=== PATIENT | female | born 1990 | race Caucasian/White ===

== ENCOUNTER → 2022-08-06 10:30 | Outpatient (CLI) | payer OTHER, SELFPAY ==
--- NOTE | ~2022-08-06 | US_ITS ---
EXAMINATION: US thyroid DATE: 08/06/2022 11:33 INDICATION: Enlarged thyroid. Disorder of thyroid, unspecified. TECHNIQUE: Multiple ultrasound images of the thyroid were obtained. COMPARISON: None. FINDINGS: The right thyroid lobe measures 5.0 x 1.8 x 1.6 cm. The left thyroid lobe measures 5.8 x 1.7 x 2.0 c m. The thyroid is diffusely hypoechoic with heterogeneous echogenicity. No discrete nodule. Vascular ity is normal. IMPRESSION: 1. Heterogeneous thyroid, likely chronic lymphocytic (Eric) thyroiditis. Reviewed, dictated and finalized at location A.
== END ==
PROVIDERS: PCP Obstetrics & Gynecology Gynecology; Visit Provider Nurse Practitioner
DX: E07.9 Disorder of thyroid, unspecified (principal)
CPT/HCPCS: 76536

== ENCOUNTER → 2023-04-07 11:13 | Outpatient (CLI) | payer OTHER, SELFPAY ==
--- NOTE | ~2023-04-07 | US_ITS ---
EXAMINATION: US pelvic complete DATE: 04/07/2023 11:40 INDICATION: Uterine enlargement TECHNIQUE: Multiple transabdominal and endovaginal sonographic images of the pelvis were obtained. COMPARISON: None. FINDINGS: The uterus measures 6.8 x 4.3 x 5.5 cm. The endometrial complex measures 11 mm. The right o vary measures 3.6 x 2.6 x 3.6 cm. The left ovary measures 12.0 x 9.2 x 13 cm. There is a 12.4 x 8.1 x 11.3 cm simple cyst of the left adnexa. There is normal vascular flow in the ovaries. There is no fr ee fluid in the pelvis. IMPRESSION: 1. 12.4 cm simple cyst of the left adnexa. Follow-up ultrasound in six months is recommended. Reviewed, dictated and finalized at location L. IMPRESSION: 1. 12.4 cm simple cyst of the left adnexa. Follow-up ultrasound in six months i s recommended.
== END ==
PROVIDERS: PCP Nurse Practitioner; Visit Provider Nurse Practitioner
DX: N85.2 Hypertrophy of uterus (principal)
CPT/HCPCS: 76856

== ENCOUNTER 2023-06-01 02:58 | Day surgery (SDC) | payer OTHER, SELFPAY ==
[2023-05-25 16:17] VITALS: BMI 26.6
--- NOTE | 2023-05-25 16:24 | SUR.PREOP ---
Report to the Outpatient Waiting Room, entrance under the green pavilion located off [facility], at time 0830 on date 06/01/23. Planned Procedure Time: 1030. Time changes happen often and if your time is changed the preop area will call you the afternoon before. - You and your visitor will be asked to self-screen and do not enter if you have any COVID symptoms. - A mask is optional within the hospital at this time. Patients may have clear liquids (water, carbonated beverages, clear teas, apple juice) until 3 hours prior to surgery with a maximum of 20 ounces. - No food from midnight until time of surgery before 0730 - Infants may have breast milk until 4 hours before surgery, infant formula 6 hours prior to surgery. - Children will be allowed to drink immediately following surgery. If applicable, please bring a bottle or sippy cup to assist with drinking. Juice, water, soda, and popsicles are readily available. For infants on formula, please bring formula the day of surgery. Pacifiers are allowed. Take the following medications with a SIP of water the morning of surgery: ____levothyroxine DO NOT STOP ANY OF YOUR OTHER PRESCRIPTION MEDICATIONS PRIOR TO SURGERY ?EXCEPT THE FOLLOWING Medications to discontinue per physician Date to take last dose Please no make-up, nail american, hairspray, perfume, deodorant, or body powder the day of surgery. No jewelry (including any body piercings) or valuables the day of surgery, leave them at home. Please take a shower or bath the night before, or the morning of, surgery with an antibacterial soap. Wear comfortable, loose fitting clothing. Children are encouraged to wear pajamas. - Jewelry must be removed prior to entering the operating room. Rings and piercings that are not removed may be cut off. - The hospital will not accept responsibility for valuables. - Please leave all valuables, including medications, at home the day of surgery. If you are going home after surgery, a licensed compressed air pile driver operator must drive you home. - NO public transportation without another adult if you receive anesthesia. - We recommend that an adult stay with you for 24 hours following discharge. - We also recommend that you do not drive, make important decision, drink alcoholic beverages, or take any drugs that were not prescribed by your health care provider for at least 24 hours after your discharge time. For Pediatric surgeries, we recommend two adults accompany the child home. Follow any additional instructions given to you from your surgeon. If you or anyone in your household have experienced Covid symptoms in the past week, please notify your surgeon or the nurse liaison at the phone number below for possible testing. Telephone instructions given to __patient___and asked if any additional questions and then verbalized understanding. Patient advised to call surgeon office or pre surgery nurse liaison [phone] if any additional questions.
[2023-06-01] VITALS (11 sets, daily range): BP systolic 114–149; BP diastolic 50–78; PULSE 55–75; RESP 14–20; TEMP 36.3–36.8; O2SAT 98–100; BMI 27.1
[2023-06-01] MEDS: LACTATED RINGERS 1,000 ML 30 ML IV CONT ×2 (06:25→08:57)
[2023-06-01] MEDS: ACETAMINOPHEN 500 MG TABLET 1000 MG PO (06:41)
[2023-06-01] MEDS: KETOROLAC 15 MG/ML VIAL (*BKC) IV PUSH (06:41)
--- NOTE | 2023-06-01 06:52 | WPDANESEPPF ---
Anes - Initial Pre Proc Eval Procedure: Operation Date: 06/01/23 07:30 Proposed Procedures p Laparoscopic Management of Left Ovarian Cyst - Esme Irvin MD Date/Time: 06/01/23 06:52 Surgeon: Esme Irvin MD Pre Op Diagnosis: left ovarin cyst Patient Data Age: 32 Gender: F Height: 1.68 m Weight: 76.35 kg Allergies Allergy/AdvReac Type Severity Reaction Status Date / Time amoxicillin Allergy Hives Verified 06/01/23 06:20 Penicillins Allergy Hives Verified 06/01/23 06:20 Home Medications Medication Instructions Recorded Confirmed Type levothyroxine 112 mcg tablet 112 mcg PO DAILY 05/25/23 06/01/23 History Patient hx anesthesia problems: none Family hx anesthesia problems: none Results Review: All pre-operative results and documents have been reviewed as part of the pre-operative evaluation. [facility] Social History Social History Smoking status: Never smoker Alcohol intake: current Drinks per week: 2 Living arrangements: with family Anes - Eval Final PreProcedure Day of Procedure 06/01/23 06:52 Patient weight: overweight Heart: regular rate and rhythm Lungs: clear to auscultation Airway: Mallampati scale class III Neurological: alert and oriented Last oral intake: >/= 8 hours ASA classification: II Emergent: no Anesthetic plan: proceed Anesthesia type and monitoring: general ETT and standard monitoring Results Review: All pre-operative results and documents have been reviewed as part of the pre-operative evaluation. Informed Consent: The patient's anesthetic plan and its attendant risks and benefits were discussed with the patient/family/POA. Questions were solicited and answers provided to the satisfaction of the patient/family/POA.
--- NOTE | 2023-06-01 07:21 | P.HP_ITS ---
History of Present Illness History of Present Illness Consent: Risks, benefits, and alternatives have been discussed and questions answered. Patient agrees to proceed with procedure. Chief complaint: left ovarin cyst Narrative: Lilliam Gomez is a 32 year old female who was seen for her well-woman exam and found to have a large pelvic mass. Patient underwent pelvic ultrasound which revealed a [id number] a simple left ovarian cyst. Tumor markers including CA - 125, CA 19 - 9, and CEA are in the normal range. Due to the size of the cyst it was recommended to undergo laparoscopy for management. Risks of infection, bleeding, perforation or injury to internal organs, and possibility of needing to remove the left tube and ovary are reviewed. The patient voices understanding and agrees to proceed. 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 Surgical History Surgical History (Updated 06/01/23 @ 07:25 by Esme Irvin MD) History of tonsillectomy Social History Social History Smoking status: Never smoker Alcohol intake: current Drinks per week: 2 Living arrangements: with family Meds Home Medications and Allergies Home Medications Medication Instructions Recorded Confirmed Type levothyroxine 112 mcg tablet 112 mcg PO DAILY 05/25/23 06/01/23 History Allergies Allergy/AdvReac Type Severity Reaction Status Date / Time amoxicillin Allergy Hives Verified 06/01/23 06:20 Penicillins Allergy Hives Verified 06/01/23 06:20 Vital Signs Vital Signs - 24 hr 06/01/23 06:05 Temperature 98.3 F Pulse Rate 75 Respiratory Rate 16 Blood Pressure 124/68 Pulse Oximetry 100 Oxygen Delivery Room Air Exam Const: General: healthy appearing and alert Orientation/consciousness: patient oriented x3 Resp: Effort & Inspection: normal respiratory effort GI: GI Palp: Yes Soft to palpation, No Tenderness to palpation present (GI) an d Yes Other GI palpation findings present ( firmness to the lower half of the abdomen) : External Female Exam: normal external appearance Speculum Exam - Vagina: normal appearance of the vagina and normal vaginal discharge Speculum Exam - Cervix: normal appearance of the cervix Bimanual exam- vagina & uterus: other ( pelvic mass approximately 16 week size) Bimanual Exam- Adnexa, other: No adnexal tenderness Neuro: General: patient oriented x3 Assessment and Plan Assessment and plan (1) Left ovarian cyst: Code(s): N83.202 - Unspecified ovarian cyst, left side Status: Acute Assessment and Plan: plan to proceed with laparoscopic management of left ovarian cyst
--- NOTE | 2023-06-01 07:21 | WPDHPUPDATE1 ---
History and Physical Update Update Date/Time: 06/01/23 07:21 History and Physical has been reviewed, including an updated exam of the patient. There are NO changes in the patient's condition. Risks, benefits, and alternatives have been discussed and questions answered. Patient agrees to proceed with procedure.
--- NOTE | 2023-06-01 08:37 | SUR.OPER ---
cyst fluid 900ml left
--- NOTE | 2023-06-01 08:59 | W.PM.PROC2 ---
Procedure Note - Detailed Date of Procedure 06/01/23 Pre-op Diagnosis left ovarin cyst Post-op Diagnosis Same Procedure Performed Laparoscopic left ovarian cystectomy Surgeon Esme Irvin MD Anesthesia General Findings Bimanual exam under anesthesia revealed the uterus to be at approximately 2cm below the umbilicus. Laparoscopic findings showed the cyst to be filling the pelvis. The cyst has 900cc of clear fluid. Cyst wall was quite thick. Remainder of the pelvic anatomy is normal. Normal-appearing tubes, right ovary, uterus. Description of Procedure The patient is taken to the operating room and placed under anesthesia in the dorsal lithotomy position. She was prepped and draped in the usual sterile fashion. Bladder was drained with a red rubber catheter. Bimanual exam was performed with the above-stated findings. The bivalve speculum was placed in the vagina and the cervix grasped on the anterior lip with a tenaculum. The acorn manipulator was placed and the speculum removed. Attention was turned to the abdomen. Due to the large size of the cyst, the decision was made to place the camera in the left upper quadrant. A scalpel was used to incise skin in the left upper quadrant. A Veress needle is placed while tenting the abdomen. Opening patient pressure was 2mmHg. Pneumoperitoneum was obtained to a patient pressure of 15mmHg. The Veress needle was removed and the abdomen tented with towel clamps while a 5mm Optiview trocar was placed. The intra-abdominal placement was confirmed with the laparoscope. The patient was placed in Trendelenburg and 2 additional incisions were made in the left and right lower quadrants. 5mm trocars were placed under direct visualization avoiding the cyst. The blunt probe was used to investigate the cyst which appears free moving and simple. The pinpoint cautery was used and unable to enter the cyst wall. The Mersilene scissors are used and a 1cm incision was made on the top of the cyst away from the fallopian tube. The suction device is placed into the cyst and 900cc of clear fluid are removed. The cyst collapsed completely. The Mersilene scissors were initially used to attempt removal of the cyst wall however due to the thick cyst wall decision was made to change to the LigaSure. The LigaSure was then used to cauterize and cut the cyst wall leaving the ovary and a small piece of cyst wall. The 5mm trocar was too small to allow passage of the cyst wall therefore a 12mm port was placed through the left lower port. A Endo-Catch bag was placed and the cyst wall placed into the bag and removed through the 12mm port. The 12mm port fascia was closed using 0 Vicryl. Pneumoperitoneum was reduced and the other trocars are removed. The skin incision of the left port was bleeding and required cautery for hemostasis. The incisions were closed using 4-0 nylon in an interrupted fashion. Sterile bandages are applied. Vaginal instruments are removed. Patient was awakened from anesthesia and taken to recovery in stable condition. Sponge, needle, and instrument counts are correct per the OR staff. Estimated Blood Loss 5 Drains No Packing No Pathology Yes (Ovarian cyst) Complications No immediate complications Condition Stable Disposition PACU
[2023-06-01] MEDS: oxyCODONE HCL (*CRX) 5 MG TAB IR PO (09:51)
== END 2023-06-01 10:44 | disposition home or self-care (01) ==
PROVIDERS: PCP Nurse Practitioner; Visit Provider Obstetrics & Gynecology Gynecology
PROC: (CPT 49320; principal; 2023-06-01 07:30)
DX: D27.1 Benign neoplasm of left ovary (principal); E06.3 Autoimmune thyroiditis
CPT/HCPCS: 58662; 88305; A9270; J1100; J1885; J2250; J2405; J2704; J2710; J3010; J7030; J7120

== ENCOUNTER 2024-07-11 14:29 | Outpatient (CLI) | payer OTHER, SELFPAY ==
--- NOTE | 2024-07-11 14:44 | ECG_ITS ---
Test Date: 2024-07-11 14:53:51 Measurements Intervals [place] Rate: 98 P: 52 VT: 147 QRS: 61 QRSD: 86 T: 30 QT: 338 QTc: 432 Interpretive Statements SINUS RHYTHM POSSIBLE LEFT ATRIAL ENLARGEMENT MODERATE ST DEPRESSION IN ANTEROLAT/INF LEADS- CONSIDER ISCHEMIA ABNORMAL ECG No previous ECG available for comparison Electronically Signed On 07-11-2024 16:38:20 CDT by Zenon Dubois D.O.
== END 2024-07-11 14:30 | disposition home or self-care (01) ==
LOC: ANHLAB 14:37
PROVIDERS: PCP Nurse Practitioner; Visit Provider Nurse Practitioner
DX: I49.9 Cardiac arrhythmia, unspecified (principal)
CPT/HCPCS: 93005

== ENCOUNTER 2024-07-11 17:47 | Emergency (ER) | payer OTHER, SELFPAY ==
--- NOTE | ~2024-07-11 | XR_ITS ---
EXAMINATION: XR chest 2V Exam Date/Time: 07/11/2024 18:54 CDT HISTORY: CP Comparison: None. RESULT: Lines, tubes, and devices: None. Lungs and pleura: Clear. Cardiomediastinal silhouette: Normal. Other: No acute osseous or upper abdominal finding. IMPRESSION: No acute cardiopulmonary process. Reviewed, dictated and finalized at location K.
--- NOTE | 2024-07-11 17:48 | ECG_ITS ---
Test Date: 2024-07-11 17:52:56 Measurements Intervals [place] Rate: 77 P: 33 MT: 147 QRS: 54 QRSD: 84 T: 18 QT: 342 QTc: 388 Interpretive Statements SINUS RHYTHM WITH MARKED SINUS ARRHYTHMIA BORDERLINE ST-T WAVE ABNORMALITY- INF/LAT LEADS BASELINE ARTIFACT- III, V1-V2 BORDERLINE ECG Compared to ECG 07/11/2024 14:53:51 POSSIBLE ISCHEMIA NO LONGER PRESENT Electronically Signed On 07-11-2024 20:07:11 CDT by Zenon Dubois D.O.
[2024-07-11 17:57] VITALS: BP 143/81; PULSE 81; RESP 17; TEMP 36.8; O2SAT 99
--- NOTE | 2024-07-11 18:51 | ED.ARRPALP ---
HPI - Arrhythmia/Palpitations General Chief Complaint: Arrhythmia/Palpitations <Maria Luz Wolff PA-C - Last Filed: 07/12/24 11:05> Stated Complaint: abnormal EKG w/ cardiology today <DIEGO Jimenez Last Filed: 07/12/24 11:05> Time Seen by Provider: 07/11/24 18:51 <DIEGO Jimenez Last Filed: 07/12/24 11:05> Focused HPI: This is a 33 year old female that presents to the ER for irregular heart rate. She was sent for EKG from her gynecologists office. She was called and told that her EKG was abnormal and she should go to the ER. Reports some chest soreness. Reports feelings of palpitations earlier today. Denies shortness of breath. GENERAL: Well-appearing, well-nourished, and in no acute distress. HEAD: Normocephalic, atraumatic. CHEST: Clear to auscultation. ?No respiratory distress. HEART: Regular rate and rhythm.? NEURO: ?Alert and oriented x3. Patient screened in triage and initial orders placed.? ?Additional care and disposition to be based upon?diagnostic testing and treatment. <DIEGO Jimenez Last Filed: 07/12/24 11:05> Source: patient <Mora Garcia PA-C - Last Filed: 07/12/24 03:10> Mode of arrival: ambulatory <DIEGO Deleon Last Filed: 07/12/24 03:10> Limitations: no limitations <DIEGO Deleon Last Filed: 07/12/24 03:10> History of Present Illness HPI narrative: Patient actually denies feeling any palpitations to me. States she only had and the chest soreness when she began thinking about her EKG and became anxious. She currently denies any symptoms. States she has otherwise been in her normal state health. Denies recent cough or cold symptoms, fevers. History of hypothyroidism, on levothyroxine. <DIEGO Deleon Last Filed: 07/12/24 03:10> Related Data Home Medications: Home Medications Medication Instructions Recorded Confirmed levothyroxine 112 mcg tablet 112 mcg PO DAILY 05/25/23 06/01/23 <Maria Luz Wolff PA-C - Last Filed: 07/12/24 11:05> Allergies/Adverse Reactions: Allergies Allergy/AdvReac Type Severity Reaction Status Date / Time amoxicillin Allergy Hives Verified 06/01/23 06:20 Penicillins Allergy Hives Verified 06/01/23 06:20 <Maria Luz Wolff PA-C - Last Filed: 07/12/24 11:05> Review of Systems Review of Systems: All systems reviewed & are unremarkable except as noted in HPI. 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 HEAD: Normocephalic, atraumatic. RESPIRATORY: Airway patent, respirations nonlabored. Clear to auscultation bilaterally, no rales, rhonchi, wheezing. CARDIOVASCULAR: Regular rate and rhythm without murmurs, rubs, or gallops. MUSCULOSKELETAL: Moves all extremities. No gross deformities. No peripheral edema. SKIN: Warm, dry, normal color. NEURO: A&O X3. Speech clear. Cranial nerves II-XII grossly intact. Steady gait. No ataxic movements. PSYCHIATRIC: Appropriate mood and affect. Normal interaction.
[2024-07-11 23:46] VITALS: PULSE 77; RESP 17; O2SAT 99
[2024-07-12 00:07] LABS: Basophils Absolute Auto 0.1 K/mm3 (0.0-0.1); Basophils Percent Auto 0.5 % (0.2-1.2); Eosinophils Absolute Auto 0.2 K/mm3 (0-0.3); Eosinophils Percent Auto 1.9 % (0-4.4); Hematocrit 39.8 % (37.0-47.0); Hemoglobin 13.5 g/dL (12.0-15.0); Immature Granulocyte Absolute 0.03 K/mm3 (0.00-0.031); Immature Granulocyte Percent A 0.2 % (0-0.5); Lymphocytes Absolute Auto 3.66 K/mm3 (0.9-3.2); Mean Corpuscular HGB Conc 33.9 g/dl (32-36); Mean Corpuscular Hemoglobin 30.7 pg (26-34); Mean Corpuscular Volume 90.5 fl (80-100); Mean Platelet Volume 9.7 fl (7.4-10.4); Monocytes Absolute Auto 0.8 K/mm3 (0.1-0.6); Monocytes Percent Auto 6.5 % (2.6-8.5); Neutrophils Absolute Auto 7.8 K/mm3 (1.3-6.7); Neutrophils Percent Auto 61.9 % (45.5-73.1); Platelet Count Result 272 k/mm3 (150-375); Red Cell Distribution Width 12.9 % (11.5-14.5); White Blood Count 12.6 K/mm3 (4.5-10.0)
--- NOTE | 2024-07-12 00:08 | PC.NURSE ---
pt states that she was sent to ED after she was told that she had an abnormal EKG at a routine metal mockup maker appointment today. She states someone said something to her about her left artery . pt denies any chest pain or SOB at this time, she states she had some chest pain earlier
[2024-07-12 00:09] LABS: Alanine Aminotransferase 30 U/L (6-35); Albumin Level 4.5 g/dL (3.5-5.1); Alkaline Phosphatase 62 U/L (38-126); Anion Gap 9 mmol/L (4-12); Aspartate Amino Transferase 27 U/L (14-36); Bilirubin,Total 0.3 mg/dL (0.2-1.3); Blood Urea Nitrogen 13 mg/dL (7-17); Calcium 8.9 mg/dL (8.4-10.2); Carbon Dioxide 25 mmol/L (22-30); Chloride 103 mmol/L (98-107); Estimated CRCL calculation 109 ml/min; Estimated Glomerular Filt Rate > 60; Glucose 99 mg/dL (65-110); Lipase 46 U/L (23-300); Potassium 3.5 mmol/L (3.4-5.0); Sodium 137 mmol/L (137-145)
[2024-07-12 00:13] LABS: INR 1.1; Prothrombin Time 14.6 Seconds (11.1-14.7)
[2024-07-12 01:01] LABS: Troponin I < 0.012 ng/mL (0.000-0.034)
--- NOTE | 2024-07-12 01:06 | ECG_ITS ---
Test Date: 2024-07-12 01:09:08 Measurements Intervals [place] Rate: 80 P: 55 SD: 156 QRS: 50 QRSD: 85 T: 20 QT: 385 QTc: 446 Interpretive Statements SINUS RHYTHM WITH FREQUENT VENTRICULAR PREMATURE COMPLEXES IN A BIGEMINAL PATTERN POSSIBLE LEFT ATRIAL ENLARGEMENT [-0.1mV P WAVE IN V1/V2] ABNORMAL RHYTHM ECG Compared to ECG 07/11/2024 17:52:56 Ventricular premature complex(es) now present Sinus arrhythmia no longer present Electronically Signed On 07-12-2024 10:09:08 CDT by Charles Laureano M.D.
[2024-07-12 01:16] LABS: Add Urine Microscopic? NO; Appearance Urine Clear (Clear); Bilirubin Urine Negative (Negative); Blood Urine Negative (Negative); Color Urine Yellow (Yellow); Glucose Urine UA Negative (Negative); Ketones Urine Negative (Negative); Leukocyte Esterase Ur Negative LEU/UL (Negative); Nitrate Urine Negative (Negative); Protein Urine Negative (Negative); Specific Grav Ur 1.018 (1.001-1.035); Urobilinogen Urine 0.2 mg/dL (<2.0); pH Urine 5.5 (5.0-9.0)
[2024-07-12 01:35] VITALS: BP 141/80; PULSE 69; RESP 16; O2SAT 100
[2024-07-12 01:38] LABS: Troponin I < 0.012 ng/mL (0.000-0.034)
[2024-07-12 01:43] LABS: Free T4 Free Thyroxine Reflex 0.93 ng/dL (0.78-2.19)
[2024-07-12 01:46] VITALS: BP 139/85; PULSE 70; RESP 17; O2SAT 100
[2024-07-12 02:03] VITALS: BP 129/77; PULSE 70; RESP 16; O2SAT 99
[2024-07-12 02:44] LABS: Total Triiodothyronine (T3) 1.19 NG/ML (0.97-1.69)
[2024-07-12 03:14] VITALS: BP 144/94; PULSE 68; RESP 18; O2SAT 98
== END 2024-07-12 03:17 | disposition home or self-care (01) ==
PROVIDERS: Physician Assistant; Emergency Provider Physician Assistant; PCP Nurse Practitioner
DX: R00.8 Other abnormalities of heart beat (principal); I49.3 Ventricular premature depolarization; R94.6 Abnormal results of thyroid function studies; E06.3 Autoimmune thyroiditis; R94.31 Abnormal electrocardiogram [ECG] [EKG]
CPT/HCPCS: 36415; 71046; 80053; 81003; 83690; 83735; 84439; 84443; 84480; 84484; 85025; 85610; 85730; 93005; 99284